=== PATIENT | male | born 1980 | race Caucasian/White ===

== ENCOUNTER → 2017-05-14 13:07 | Outpatient (CLI) | payer BC ==
[2013-06-20 13:36] VITALS: BMI 37.9
[~2017-05-14 13:07] MED LIST: CELEXA20 MG; CELEXA20 MG PO; COREG 3.1253.125 MG PO; KLOR-CON 1010 MEQ PO; LASIX20 MG PO; MIDAMOR5 MG PO; NORVASC2.5 MG PO; PRINIVIL20 MG PO
[2017-05-14 14:17] LABS: ANION GAP 10.4 mmol/L (8-16); CALCIUM 8.3 mg/dL (8.5-10.1); CARBON DIOXIDE 30.1 mmol/L (21.0-32.0); CREATININE - SERUM 1.4 mg/dL (0.6-1.3); POTASSIUM - SERUM 3.5 mmol/L (3.5-5.1)
== END | disposition home or self-care (01) ==
LOC: D.LABREF 13:07
PROVIDERS: Family Medicine
DX: I10 Essential (primary) hypertension (principal)

== ENCOUNTER 2017-05-16 14:33 | Emergency (ER) | payer BC ==
[2013-06-20 13:36] VITALS: BMI 37.9
[2017-05-16 15:33] LABS: BASOPHILS 0.3 % (0-2); EOSINOPHILS 0 % (0-7); HEMATOCRIT 40.1 % (42.0-54.0); HEMOGLOBIN 13.4 g/dL (13.5-17.5); IMMATURE GRANULOCYTES 0.4 % (0-5); LYMPHOCYTES 22.9 % (15-50); MCH 27.5 pg (26.0-34.0); MCHC 33.4 g/dL (31.0-37.0); MCV 82.3 fL (80.0-100.0); MEAN PLATELET VOLUME 10.2 fL (7.4-10.4); NEUTROPHILS 63.4 % (40-80); RBC 4.87 10x6/uL (4.20-6.10); RDW 14.3 % (11.5-14.5)
[2017-05-16 15:34] LABS: PLATELET COUNT 141 10x3/uL (130-400)
[2017-05-16 15:54] LABS: ALBUMIN 2.9 g/dL (3.4-5.0); ALKALINE PHOSPHATASE 43 U/L (46-116); ALT (SGPT) 36 U/L (10-68); BILIRUBIN - TOTAL 0.82 mg/dL (0.2-1.3); CALCIUM 8.2 mg/dL (8.5-10.1); CARBON DIOXIDE 23.1 mmol/L (21.0-32.0); CREATININE - SERUM 1.9 mg/dL (0.6-1.3); POTASSIUM - SERUM 4.9 mmol/L (3.5-5.1); PRO BNP 5455 pg/mL (0-125); PROTEIN - SERUM 6.7 g/dL (6.4-8.2); UREA NITROGEN 22 mg/dL (7-18); eGFR NON AFRICAN AMERICAN 43 mL/min (90-120)
[2017-05-16 15:56] LABS: GLUCOSE 291 mg/dL (74-106)
[2017-05-16 15:58] LABS: CALC OSMOLALITY 248 mosm/kg (275-300); CHLORIDE - SERUM 81 mmol/L (98-107); CREATINE KINASE 10117 UL (21-232); SODIUM 116 mmol/L (136-145)
== END 2017-05-16 17:30 ==
LOC: D.ER 14:33
PROVIDERS: Family Medicine
DX: J96.00 Acute respiratory failure, unspecified whether with hypoxia or hypercapnia (principal); I50.9 Heart failure, unspecified; R50.9 Fever, unspecified; I46.9 Cardiac arrest, cause unspecified; E11.9 Type 2 diabetes mellitus without complications; J18.9 Pneumonia, unspecified organism; G47.30 Sleep apnea, unspecified; I45.4 Nonspecific intraventricular block